=== PATIENT | male | born 1950 | race Caucasian/White ===

== ENCOUNTER 2017-05-30 15:08 | Inpatient (IN) | payer BC ==
--- OUTSIDE RECORDS SUMMARY | 2017-05-30 15:10 | XMS REPORT | Clinical Summary ---
:1950 Author Organization [facility] Address [address] [place] [address] Phone Care Team Providers Name Role Phone Unavailable Primary Care Provider Unavailable Allergies No Known Allergies Current Medications Prescription Sig. Disp. Refills Start Date End Date Status aspirin 81 MG chewable Take 81 mg by Active tabletIndications: mouth daily. prevention of cerebrovascular accident simethicone (MYLICON) Take 1 tablet 60 tablet 0 03/10/2017 Active 80 MG chewable tablet (80 mg total) by mouth 4 (four) times daily as needed for Flatulence. oxyCODONE-acetaminophe Take 1 tablet 90 tablet 0 03/10/2017 Active n (PERCOCET) 10-325 mg by mouth every per tablet 4 (four) hours as needed. Max Daily Amount: 6 tablets naloxegol (MOVANTIK) Take 1 tablet 30 tablet 0 03/10/2017 Active 25 mg Oral Tab tablet (25 mg total) by mouth daily. hydrocortisone Place rectally 30 g 0 03/10/2017 03/20/2017 (ANUSOL-HC) 2.5 % nightly for 10 rectal cream days. Active Problems Problem Noted Date Smoker 03/05/2017 Malignant ascites 03/05/2017 Carcinomatosis peritonei (HCC) 03/05/2017 Obesity 03/05/2017 Generalized abdominal pain 03/05/2017 Abdominal pain 03/05/2017 Encounters Date Type Specialty Care Team Description 03/13/2017 Telephone Cardiology Cristina Martinez RN 03/09/2017 Anesthesia Event Gastroenterology Sulma Pisano CRNA 03/09/2017 Procedure Pass Gastroenterology 03/09/2017 Surgery Gastroenterology Concepcion Carbajal COLONOSCOPY,BIOPSY MD Usama 03/05/2017 - Hospital Encounter Oncology Gadicherla, Kaitlynn Generalized 03/10/2017 MD Shonda abdominal Feli Downs MD pain;Carcinomatosis ricky De Guzman MD (HCC);Malignant Edy Leidy ascites;Smoker MD Rossana after 05/29/2016 Family History Medical History Relation Name Comments Heart disease Brother Heart disease Father Cancer Maternal Grandfather Cancer Mother Relation Name Status Comments Brother Father Maternal Grandfather Mother Social History Tobacco Use Types Packs/Day Years Used Date Current Every Day Smoker 1 25 Smokeless Tobacco: Never Used Tobacco Cessation: Ready to Quit: Yes; Counseling Given: Yes Alcohol Use Drinks/Week oz/Week Comments Yes social Sex Assigned at Date Recorded Not on file Last Filed Vital Signs Vital Sign Reading Time Taken Blood Pressure 146/83 03/10/2017 7:33 AM MACHINE OPERATOR P[employer] Pulse 95 03/10/2017 7:33 AM MACHINE OPERATOR [employer] Temperature 36.3 C (97.4 F) 03/10/2017 7:33 AM MACHINE OPERATOR [employer] Respiratory Rate 19 03/10/2017 7:33 AM MACHINE OPERATOR [employer] Oxygen Saturation 94% 03/10/2017 7:33 AM MACHINE OPERATOR [employer]ICKER Inhaled Oxygen Concentration - - Weight 124.3 kg (274 lb 1.6 oz) 03/05/2017 11:00 AM MACHINE OPERATOR [employer] Height 180.3 cm (5' 11") 03/05/2017 11:00 AM MACHINE OPERATOR [employer]ICK[employer] Body Mass Index 38.23 03/05/2017 11:00 AM MACHINE OPERATOR [employer]ICKER Plan of Treatment Health Maintenance Due Date Last Done Comments INFLUENZA VACCINE 11/23/2017 Procedures Procedure Name Priority Date/Time Associated Diagnosis Comments COLONOSCOPY,BIOPSY 03/09/2017 11:00 AM MACHINE OPERATOR [employer]ICKER abnormal imaging after 05/29/2016 Results EKG-SCANNED (03/30/2017 1:21 PM)RHYTHM STRIP - SCAN (03/13/2017 8:20 AM)POC- Glucose meter (03/10/2017 7:48 AM)Only the most recent of15 resultswithin the time period is included. Component Value Ref Range POC-Glucose Meter 138 (H)Comment: TESTED AT [address] 70 - 110 mg/[place] [address] Specimen Performing Laboratory Blood [facility] [address] [address] Comprehensive metabolic panel (03/10/2017 6:11 AM)Only the most recent of4 resultswithin the time period is included. Component Value Ref Range Protein, Total 6.2 6.0 - 8.3 gm/dL Albumin 2.7 (L) 3.5 - 5.0 g/dL Alkaline Phosphatase 45 40 - 150 U/L Total Bilirubin 0.4 0.2 - 1.2 mg/dL Sodium 136 136 - 145 meq/L Potassium 3.7 3.5 - 5.1 meq/L Chloride 100 98 - 107 meq/L CO2 27 22 - 29 meq/L BUN 11 7 - 21 mg/dL Creatinine 0.59 0.57 - 1.25 mg/dL Glucose 129 (H) 70 - 105 mg/dL Calcium 8.6 8.4 - 10.2 mg/dL AST 19 5 - 34 U/L ALT 21 6 - 55 U/L EGFR Comment: INSUFFICIENT CLINICAL DATA TO mL/min/1.73 sq m CALCULATE ESTIMATED GFR. Specimen Performing Laboratory Blood - Arm, Right [address] [address] REPORT OF PROCEDURE - ENDOSCOPY URL (03/09/2017 11:35 AM)Tissue Exam (2017 11:25 AM) Component Value Ref Range Case Report Surgical Pathology Report Case: [id number] Authorizing Provider:Concepcion Carbajal MDCollected: 03/09/2017 1125 Ordering Location: [address] Received: 03/09/2017 1341 SERVICE Pathologist: Pamela García MD Specimen:Polyp, Colon - Sigmoid, mass 35 cm ADDENDUM 2 Addendum is issued to report additional results from [employer]. The original diagnosis remains the same. Results: - NO EVIDENCE OF MUTATION IN BRAF, KRAS, NRAS AND HRAS GENES. Please see the attached scanned documents for additional information. ADDENDUM The addendum is being issued to report the results of immunohistochemistry (IHC) testing for Mismatch Repair (MMR) Proteins, which has been performed on the colon cancer at the request of the oncologist. The diagnosis remains unchanged. IHC testing for all four MMR proteins was performed on selected block A1 with appropriate controls. RESULTS MLH1: Intact nuclear expression MSH2: Intact nuclear expression MSH6: Intact nuclear expression PMS2: Intact nuclear expression IHC Interpretation No loss of nuclear expression of MMR proteins: low probability of microsatellite instability-high (MSI-H)# #There are exceptions to the above IHC interpretations. These results should not be considered in isolation, and clinical correlation with genetic counseling is recommended to assess the need for germline testing. Immunohistochemistry disclaimer: The immunohistochemistry test was developed and its performance characteristics determined by [facility], Pathology Laboratory. It has not been cleared or approved by the U.S. Food and Drug Administration. The FDA has determined that such clearance or approval is not necessary. The test is used for clinical purposes. It should not be regarded as investigational or for research. This laboratory is certified under the Clinical Laboratory Improvement Amendments of 1988 (CLIA-88) as qualified to perform high complexity clinical laboratory testing. 57[address], 66486 x3 DIAGNOSIS COLON, SIGMOID, MASS, BIOPSY: - INVASIVE ADENOCARCINOMA, WITH MUCINOUS DIFFERENTIATION AND SIGNET- RING CELL FEATURES Signing Pathologist Direct Phone Line: [phone] COMMENT Intradepartmental consultation: Dr. Jett Fried has been consulted on this case and concurs with the diagnosis. CPT Code(s) 97874 CLINICAL HISTORY Abnormal imaging SPECIMEN SOURCE COLON GROSS DESCRIPTION Sigmoid colon mass at 35 cm biopsy MICROSCOPIC DESCRIPTION Received in formalin labeled "polyp, colon sigmoid", description "mass 35 cm" are multiple fragments measuring 1.5 x 0.6 x 0.1 cm in aggregate. The specimen is entirely submitted in A1. DB/ew Specimen Performing Laboratory Tissue - Polyp, Colon - Sigmoid [address] [address] Calcium, Ionized (03/07/2017 5:21 AM)Only the most recent of2 resultswithin the time period is included. Component Value Ref Range Calcium, Ion 1.07 (L) 1.12 - 1.27 mmol/L pH, Blood 7.36 Specimen Performing Laboratory Blood [address] [address] CBC with platelet count + automated diff (03/07/2017 5:21 AM)Only the most recent of3 resultswithin the time period is included. Component Value Ref Range WBC 10.4 3.5 - 10.5 K/L RBC 4.37 (L) 4.63 - 6.08 M/L Hemoglobin 12.5 (L) 13.7 - 17.5 GM/DL Hematocrit 39.7 (L) 40.1 - 51.0 % MCV 90.8 79.0 - 92.2 fL MCH 28.6 25.7 - 32.2 pg MCHC 31.5 (L) 32.3 - 36.5 GM/DL RDW 12.3 11.6 - 14.4 % Platelets 367 150 - 450 K/CU MM MPV 10.5 9.4 - 12.4 fL nRBC 0 0 - 0 /100 WBC % Neutros 77 % % Lymphs 9 % % Monos 13 % % Eos 0 % % Baso 0 % # Neutros 8.03 (H) 1.78 - 5.38 K/L # Lymphs 0.96 (L) 1.32 - 3.57 K/L # Monos 1.33 (H) 0.30 - 0.82 K/L # Eos 0.00 (L) 0.04 - 0.54 K/L # Baso 0.03 0.01 - 0.08 K/L Immature Granulocytes-Relative 1 0 - 1 % Specimen Performing Laboratory Blood [address] [address] CBC with platelet count + automated diff (03/07/2017 5:21 AM)Only the most recent of3 resultswithin the time period is included. Specimen Performing Laboratory Blood Narrative The following orders were created for panel order CBC with platelet count + automated diff. Procedure Abnormality Status --------- ------ CBC with platelet count ...[[id number]]AbnormalFinal result Please view results for these tests on the individual orders. Phosphorus (03/07/2017 5:21 AM)Only the most recent of2 resultswithin the time period is included. Component Value Ref Range Phosphorus 3.7 2.3 - 4.7 mg/dL Specimen Performing Laboratory Blood [address] [address] Magnesium (03/07/2017 5:21 AM)Only the most recent of2 resultswithin the time period is included. Component Value Ref Range Magnesium 1.9 1.6 - 2.6 mg/dL Specimen Performing Laboratory Blood [address] [address] US abdomen limited (03/06/2017 3:44 PM) Specimen Performing Laboratory GE RIS Narrative FINAL REPORT Limited abdomen ultrasound. Clinical diagnosis malignant ascites. 12 images were submitted for interpretation. Specifically there is no evidence of a serous fluid collection amenable to percutaneous aspiration. The requested paracentesis was canceled. Signed: Poppy Bender MD Report Verified Date/Time:03/06/2017 16:18:39 Reading Location: [place] [id number] Ultrasound Reading Room Procedure Note Interface, External Ris In - 03/06/2017 4:20 PM MACHINE OPERATOR PICKER FINAL REPORT Limited abdomen ultrasound. Clinical diagnosis malignant ascites. 12 images were submitted for interpretation. Specifically there is no evidence of a serous fluid collection amenable to percutaneous aspiration. The requested paracentesis was canceled. Signed: Poppy Bender MD Report Verified Date/Time: 03/06/2017 16:18:39 Reading Location: [place] [id number] Ultrasound Reading Room abdomen/pelvis with IV contrast (03/06/2017 3:12 PM) Specimen Performing Laboratory GE RIS Narrative FINAL REPORT HISTORY : peritoneal carcinomatosis Technique: Multiple axial images of the abdomen and pelvis were performed with the administration of IV and oral contrast from the lung bases to the pubic symphysis. Delayed images were also obtained. This exam was performed according to our departmental dose optimization program which includes automated exposure control, adjustment of the mA and/or kV according to patient size and/or use of iterative reconstructive technique. COMPARISON : None COMMENT : There is some bibasilar linear subsegmental atelectasis versus scarring, seen most significantly in the right lung base. There is atherosclerotic vascular disease. The visualized spleen, adrenal glands, kidneys, pancreas, stomach and duodenum are within normal limits. There is scalloping of the hepatic contour in the vicinity of the perihepatic ascites. This is concerning for malignancy ascites given the ancillary findings in the abdomen and pelvis. Superinfection of the fluid cannot be entirely excluded in the appropriate clinical context. There is no abdominal, retroperitoneal or pelvic lymphadenopathy. Multilevel degenerative disc changes of the thoracolumbar spine are seen. There is grade 1-2 anterolisthesis of L4 over L5. No free air is identified in the abdomen or pelvis. There is a small amount of free fluid/ascites in the abdomen and pelvis. There is omental caking/nodularity with numerous peritoneal based nodules. For example, in the left upper quadrant, there is a 1.6 cm pleural-based nodule. More confluent areas are seen in the right upper abdomen. The largest area of omental disease is seen in the left mid abdomen measuring up to a maximum of 14.0 x 3.0 cm. No findings of any bowel obstruction. The small bowel is within normal limits. There is focal masslike thickening identified of the mid sigmoid colon. A colonic neoplasm cannot be excluded. Correlation with colonoscopy is advised. An area of focal colitis cannot be excluded. There is colonic diverticulosis. There are no CT findings to suggest diverticulitis, however. The appendix is visualized and is within normal limits. The prostate gland is enlarged. The seminal vesicles are grossly within normal limits. There is some high density material in the bladder on the nondelayed images. This could represent some excreted contrast from prior contrast enhanced examination. Other etiologies including hemorrhagic fluid or proteinaceous fluid cannot be entirely excluded. Impression: 1. Focal masslike thickening of the mid sigmoid colon. Neoplasm cannot be excluded. Correlation with colonoscopy is advised. 2. Extensive peritoneal and omental carcinomatosis. 3. Small amount of likely malignant ascites. 4. Enlarged prostate gland. Signed: Teresita Landeros MD Report Verified Date/Time:03/06/2017 15:39:38 Reading Location: [facility] Diagnostic Imaging Reading Room - [place] [address] Procedure Note Interface, External Ris In - 03/06/2017 3:41 PM MACHINE OPERATOR PICKER FINAL REPORT HISTORY : peritoneal carcinomatosis Technique: Multiple axial images of the abdomen and pelvis were performed with the administration of IV and oral contrast from the lung bases to the pubic symphysis. Delayed images were also obtained. This exam was performed according to our departmental dose optimization program which includes automated exposure control, adjustment of the mA and/or kV according to patient size and/or use of iterative reconstructive technique. COMPARISON : None COMMENT : There is some bibasilar linear subsegmental atelectasis versus scarring, seen most significantly in the right lung base. There is atherosclerotic vascular disease. The visualized spleen, adrenal glands, kidneys, pancreas, stomach and duodenum are within normal limits. There is scalloping of the hepatic contour in the vicinity of the perihepatic ascites. This is concerning for malignancy ascites given the ancillary findings in the abdomen and pelvis. Superinfection of the fluid cannot be entirely excluded in the appropriate clinical context. There is no abdominal, retroperitoneal or pelvic lymphadenopathy. Multilevel degenerative disc changes of the thoracolumbar spine are seen. There is grade 1-2 anterolisthesis of L4 over L5. No free air is identified in the abdomen or pelvis. There is a small amount of free fluid/ascites in the abdomen and pelvis. There is omental caking/nodularity with numerous peritoneal based nodules. For example, in the left upper quadrant, there is a 1.6 cm pleural-based nodule. More confluent areas are seen in the right upper abdomen. The largest area of omental disease is seen in the left mid abdomen measuring up to a maximum of 14.0 x 3.0 cm. No findings of any bowel obstruction. The small bowel is within normal limits. There is focal masslike thickening identified of the mid sigmoid colon. A colonic neoplasm cannot be excluded. Correlation with colonoscopy is advised. An area of focal colitis cannot be excluded. There is colonic diverticulosis. There are no CT findings to suggest diverticulitis, however. The appendix is visualized and is within normal limits. The prostate gland is enlarged. The seminal vesicles are grossly within normal limits. There is some high density material in the bladder on the nondelayed images. This could represent some excreted contrast from prior contrast enhanced examination. Other etiologies including hemorrhagic fluid or proteinaceous fluid cannot be entirely excluded. Impression: 1. Focal masslike thickening of the mid sigmoid colon. Neoplasm cannot be excluded. Correlation with colonoscopy is advised. 2. Extensive peritoneal and omental carcinomatosis. 3. Small amount of likely malignant ascites. 4. Enlarged prostate gland. Signed: Teresita Landeros MD Report Verified Date/Time: 03/06/2017 15:39:38 Reading Location: [facility] Diagnostic Imaging Reading Room - [place] [address] Prothrombin time/INR (03/06/2017 10:16 AM)Only the most recent of2 resultswithin the time period is included. Component Value Ref Range Protime 15.7 (H) 11.7 - 14.7 seconds INR 1.2 <=5.9 Specimen Performing Laboratory Blood - Arm, [address] [address] Narrative RECOMMENDED COUMADIN/WARFARIN INR THERAPY RANGES STANDARD DOSE: 2.0 - 3.0 Includes: PROPHYLAXIS for venous thrombosis, systemic embolization; TREATMENT for venous thrombosis and/or pulmonary embolus. HIGH RISK: Target INR is 2.5-3.5 for patients with mechanical heart valves. TSH/Free T4 If Indicated (03/06/2017 5:01 AM) Component Value Ref Range TSH 0.82 0.35 - 4.94 uIU/mL Specimen Performing Laboratory Blood - Arm, [address] [address] Hemoglobin A1c (03/06/2017 5:01 AM) Component Value Ref Range Hemoglobin A1C 7.9 (H) 4.3 - 6.1 % Specimen Performing Laboratory Blood - Arm, [address] [address] Basic Metabolic Panel (03/06/2017 5:01 AM) Component Value Ref Range Sodium 135 (L) 136 - 145 meq/L Potassium 4.2 3.5 - 5.1 meq/L Chloride 99 98 - 107 meq/L CO2 27 22 - 29 meq/L BUN 12 7 - 21 mg/dL Creatinine 0.62 0.57 - 1.25 mg/dL Glucose 143 (H) 70 - 105 mg/dL Calcium 8.7 8.4 - 10.2 mg/dL EGFR Comment: INSUFFICIENT CLINICAL DATA TO CALCULATE mL/min/1.73 sq m ESTIMATED GFR. Specimen Performing Laboratory Blood - Arm, [address] [address] after 05/29/2016
--- OUTSIDE RECORDS SUMMARY | 2017-05-30 15:11 | XMS REPORT ---
:1950 [facility] [address] [place] [address] Care Team Providers Name Role Phone ABDOUL HARRIS Unavailable Unavailable Problems This patient has no known problems. Allergies, Adverse Reactions, Alerts This patient has no known allergies or adverse reactions. Medications This patient has no known medications. Results Test Description Test Time Test Comments Text Results Atomic Results Result Comments TISSUE EXAM 2017-04-06 10:48:00 Surgical Pathology Report Case: [id number] Authorizing Provider: Concepcion Carbajal MD Collected: 03/09/2017 1125 Ordering Location: [address] Received: 03/09/2017 1341 SERVICE Pathologist: Pamela García MD Specimen: Polyp, Colon - Sigmoid, mass 35 cm Addendum is issued to report additional results from [employer]. The original diagnosis remains the same.Results:- NO EVIDENCE OF MUTATION IN BRAF, KRAS, NRAS AND HRAS GENES.Please see the attached scanned documents for additional information.Addendum electronically signed by Pamela García MD on 04/06/2017 at 10:48 AMThe addendum is being issued to report the results of immunohistochemistry (IHC) testing for Mismatch Repair (MMR) Proteins, which has been performed on the colon cancer at the request of the oncologist.The diagnosis remains unchanged.IHC testing for all four MMR proteins was performed on selected block A1 with appropriate controls.RESULTSMLH1: Intact nuclear expressionMSH2: Intact nuclear expressionMSH6: Intact nuclear expressionPMS2: Intact nuclear expressionIHC InterpretationNo loss of nuclear expression of MMR proteins: low probability of microsatellite instability-high (MSI-H)# #There are exceptions to the above IHC interpretations. These results should not be considered in isolation, and clinical correlation with genetic counseling is recommended to assess the need for germline testing.Immunohistochemistry disclaimer:The immunohistochemistry test was developed and its performance characteristics determined by [facility], Pathology Laboratory. It has not been cleared [...] qualified to perform high complexity clinical laboratory testing.[id number], [id number] [id number] electronically signed by Pamela García MD on 03/25/2017 at 10:22 AMCOLON, SIGMOID, MASS, BIOPSY: - INVASIVE ADENOCARCINOMA, WITH MUCINOUS DIFFERENTIATION AND SIGNET-RING CELL FEATURES Signing Pathologist Direct Phone Line: [phone] signed by Pamela García MD on 03/10/2017 at 1:46 PMIntradepartmental consultation: Dr. Jett Fried has been consulted on this case and concurs with the diagnosis.[id number] imagingCOLONSigmoid colon mass at 35 cm biopsy Received in formalin labeled "polyp, colon sigmoid", description "mass 35 cm" are multiple fragments measuring 1.5 x 0.6 x 0.1 cm in aggregate. The specimen is entirely submitted in A1. DB/ew POCT-GLUCOSE METER 2017-03-10 08:31:00 Test Item Value Reference Range Comments POC-GLUCOSE METER (BEAKER) (test 138 mg/dL 70-110 TESTED AT [facility] [address] [facility] [address] kcmy=[id number]) [facility] [address] COMPREHENSIVE METABOLIC [id number] 07:34:00 Test Item Value Reference Range Comments TOTAL PROTEIN (BEAKER) 6.2 gm/dL 6.0-8.3 (test ltwk=258) ALBUMIN (BEAKER) (test 2.7 g/dL 3.5-5.0 jnbf=3411) ALKALINE PHOSPHATASE 45 U/L 40-150 (BEAKER) (test inaf=193) BILIRUBIN TOTAL (BEAKER) 0.4 mg/dL 0.2-1.2 (test vyja=571) SODIUM (BEAKER) (test 136 meq/L 136-145 kuyh=259) POTASSIUM (BEAKER) (test 3.7 meq/L 3.5-5.1 guwp=643) CHLORIDE (BEAKER) (test 100 meq/L 98-107 jkyg=234) CO2 (BEAKER) (test 27 meq/L 22-29 xqjl=912) BLOOD UREA NITROGEN 11 mg/dL 7-21 (BEAKER) (test rcxx=320) CREATININE (BEAKER) (test 0.59 mg/dL 0.57-1.25 bsbc=013) GLUCOSE RANDOM (BEAKER) 129 mg/dL 70-105 (test rjst=404) CALCIUM (BEAKER) (test 8.6 mg/dL 8.4-10.2 llke=674) AST (SGOT) (BEAKER) (test 19 U/L 5-34 iqcf=280) ALT (SGPT) (BEAKER) (test 21 U/L 6-55 kkfk=254) EGFR (BEAKER) (test mL/min/1.73 sq m INSUFFICIENT CLINICAL DATA pdjx=1850) TO CALCULATE ESTIMATED GFR. POCT-GLUCOSE [id number] 21:05:00 Test Item Value Reference Range Comments POC-GLUCOSE METER (BEAKER) 140 mg/dL 70-110 TESTED AT [address] (test pqke=5116) [place] [id number] POCT-GLUCOSE [id number] 18:31:00 Test Item Value Reference Range Comments POC-GLUCOSE METER (BEAKER) 170 mg/dL 70-110 TESTED AT [address] (test cjlh=3945) [place] [address] POCT-GLUCOSE [id number] 11:56:00 Test Item Value Reference Range Comments POC-GLUCOSE METER (BEAKER) 130 mg/dL 70-110 TESTED AT [address] (test tszx=1563) [place] [id number] POCT-GLUCOSE [id number] 08:55:00 Test Item Value Reference Range Comments POC-GLUCOSE METER (BEAKER) 129 mg/dL 70-110 TESTED AT [address] (test xivi=3133) [place] [id number] POCT-GLUCOSE [id number] 20:33:00 Test Item Value Reference Range Comments POC-GLUCOSE METER (BEAKER) 166 mg/dL 70-110 TESTED AT [address] (test pqvu=9690) [place] [address] POCT-GLUCOSE [id number] 16:58:00 Test Item Value Reference Range Comments POC-GLUCOSE METER (BEAKER) 133 mg/dL 70-110 TESTED AT [address] (test dshg=4133) [facility] [address] POCT-GLUCOSE [id number] 12:33:00 Test Item Value Reference Range Comments POC-GLUCOSE METER (BEAKER) 151 mg/dL 70-110 TESTED AT [address] (test hsop=8637) [facility] [address] COMPREHENSIVE METABOLIC [id number] 07:46:00 Test Item Value Reference Range Comments TOTAL PROTEIN (BEAKER) 6.5 gm/dL 6.0-8.3 (test uhhu=562) ALBUMIN (BEAKER) (test 2.9 g/dL 3.5-5.0 npsg=1461) ALKALINE PHOSPHATASE 51 U/L 40-150 (BEAKER) (test puad=584) BILIRUBIN TOTAL (BEAKER) 0.4 mg/dL 0.2-1.2 (test qvqq=042) SODIUM (BEAKER) (test 136 meq/L 136-145 qrar=281) POTASSIUM (BEAKER) (test 4.1 meq/L 3.5-5.1 drww=998) CHLORIDE (BEAKER) (test 100 meq/L 98-107 nehr=742) CO2 (BEAKER) (test 26 meq/L 22-29 vsqm=165) BLOOD UREA NITROGEN 13 mg/dL 7-21 (BEAKER) (test hutr=704) CREATININE (BEAKER) (test 0.58 mg/dL 0.57-1.25 gsxv=090) GLUCOSE RANDOM (BEAKER) 132 mg/dL 70-105 (test sbyk=805) CALCIUM (BEAKER) (test 8.9 mg/dL 8.4-10.2 jzsu=794) AST (SGOT) (BEAKER) (test 15 U/L 5-34 tjcf=334) ALT (SGPT) (BEAKER) (test 26 U/L 6-55 ujkj=049) EGFR (BEAKER) (test mL/min/1.73 sq m INSUFFICIENT CLINICAL DATA ueea=8081) TO CALCULATE ESTIMATED GFR. POCT-GLUCOSE [id number] 07:33:00 Test Item Value Reference Range Comments POC-GLUCOSE METER (BEAKER) 139 mg/dL 70-110 TESTED AT [address] (test aubs=3866) [facility] [address] POCT-GLUCOSE [id number] 22:21:00 Test Item Value Reference Range Comments POC-GLUCOSE METER (BEAKER) 170 mg/dL 70-110 TESTED AT [address] (test mwjy=1248) [facility] [address] POCT-GLUCOSE [id number] 21:17:00 Test Item Value Reference Range Comments POC-GLUCOSE METER (BEAKER) 146 mg/dL 70-110 TESTED AT [address] (test mrio=4560) [facility] [address] POCT-GLUCOSE [id number] 12:23:00 Test Item Value Reference Range Comments POC-GLUCOSE METER (BEAKER) 189 mg/dL 70-110 TESTED AT [address] (test ybqx=8788) [facility] [address] CBC W/PLT COUNT & AUTO [id number] 08:47:00 Test Item Value Reference Range Comments WHITE BLOOD CELL COUNT (BEAKER) (test cwji=960) 10.4 K/ L 3.5-10.5 RED BLOOD CELL COUNT (BEAKER) (test fvxs=727) 4.37 M/ L 4.63-6.08 HEMOGLOBIN (BEAKER) (test fwwm=922) 12.5 GM/DL 13.7-17.5 HEMATOCRIT (BEAKER) (test ruwq=683) 39.7 % 40.1-51.0 MEAN CORPUSCULAR VOLUME (BEAKER) (test bwnm=119) 90.8 fL 79.0-92.2 MEAN CORPUSCULAR HEMOGLOBIN (BEAKER) (test 28.6 pg 25.7-32.2 jadp=555) MEAN CORPUSCULAR HEMOGLOBIN CONC (BEAKER) (test 31.5 GM/DL 32.3-36.5 tmpc=425) RED CELL DISTRIBUTION WIDTH (BEAKER) (test 12.3 % 11.6-14.4 otrs=713) PLATELET COUNT (BEAKER) (test rphi=769) 367 K/CU MM 150-450 MEAN PLATELET VOLUME (BEAKER) (test zemw=210) 10.5 fL 9.4-12.4 NUCLEATED RED BLOOD CELLS (BEAKER) (test 0 /100 WBC 0-0 ayrw=820) NEUTROPHILS RELATIVE PERCENT (BEAKER) (test 77 % gojn=607) LYMPHOCYTES RELATIVE PERCENT (BEAKER) (test 9 % eypv=332) MONOCYTES RELATIVE PERCENT (BEAKER) (test 13 % gufl=386) EOSINOPHILS RELATIVE PERCENT (BEAKER) (test 0 % ekee=652) BASOPHILS RELATIVE PERCENT (BEAKER) (test 0 % baiv=002) NEUTROPHILS ABSOLUTE COUNT (BEAKER) (test 8.03 K/ L 1.78-5.38 ezcv=926) LYMPHOCYTES ABSOLUTE COUNT (BEAKER) (test 0.96 K/ L 1.32-3.57 igea=283) MONOCYTES ABSOLUTE COUNT (BEAKER) (test 1.33 K/ L 0.30-0.82 lfin=736) EOSINOPHILS ABSOLUTE COUNT (BEAKER) (test 0.00 K/ L 0.04-0.54 igqr=573) BASOPHILS ABSOLUTE COUNT (BEAKER) (test 0.03 K/ L 0.01-0.08 ndoe=557) IMMATURE GRANULOCYTES-RELATIVE PERCENT (BEAKER) 1 % 0-1 (test oieu=8582) POCT-GLUCOSE [id number] 08:41:00 Test Item Value Reference Range Comments POC-GLUCOSE METER (BEAKER) 150 mg/dL 70-110 TESTED AT [facility] [address] [facility] (test gmcs=7950) [facility] [address] COMPREHENSIVE METABOLIC [id number] 07:27:00 Test Item Value Reference Range Comments TOTAL PROTEIN (BEAKER) 6.4 gm/dL 6.0-8.3 (test eplg=059) ALBUMIN (BEAKER) (test 2.9 g/dL 3.5-5.0 nmzv=1427) ALKALINE PHOSPHATASE 52 U/L 40-150 (BEAKER) (test dzbp=188) BILIRUBIN TOTAL (BEAKER) 0.4 mg/dL 0.2-1.2 (test wxsa=054) SODIUM (BEAKER) (test 133 meq/L 136-145 uvaw=756) POTASSIUM (BEAKER) (test 4.5 meq/L 3.5-5.1 layv=882) CHLORIDE (BEAKER) (test 98 meq/L 98-107 ynkw=467) CO2 (BEAKER) (test 25 meq/L 22-29 btuj=547) BLOOD UREA NITROGEN 12 mg/dL 7-21 (BEAKER) (test hiqn=261) CREATININE (BEAKER) (test 0.60 mg/dL 0.57-1.25 vshg=150) GLUCOSE RANDOM (BEAKER) 139 mg/dL 70-105 (test oyzm=998) CALCIUM (BEAKER) (test 8.9 mg/dL 8.4-10.2 epdq=883) AST (SGOT) (BEAKER) (test 21 U/L 5-34 ekgy=294) ALT (SGPT) (BEAKER) (test 35 U/L 6-55 xyua=721) EGFR (BEAKER) (test mL/min/1.73 sq m INSUFFICIENT CLINICAL DATA oohg=2912) TO CALCULATE ESTIMATED GFR. [id number] 07:26:00 Test Item Value Reference Range Comments PHOSPHORUS (BEAKER) (test xqnu=030) 3.7 mg/dL 2.3-4.7 [id number] 07:26:00 Test Item Value Reference Range Comments MAGNESIUM (BEAKER) (test ccda=052) 1.9 mg/dL 1.6-2.6 CALCIUM, [id number] 07:15:00 Test Item Value Reference Range Comments CALCIUM IONIZED (BEAKER) (test hvay=804) 1.07 mmol/L 1.12-1.27 PH, BLOOD (BEAKER) (test aukn=8340) 7.36 POCT-GLUCOSE [id number] 21:41:00 Test Item Value Reference Range Comments POC-GLUCOSE METER (BEAKER) 137 mg/dL 70-110 TESTED AT [facility] [address] [facility] (test xavf=4869) [facility] [address] POCT-GLUCOSE [id number] 18:26:00 Test Item Value Reference Range Comments POC-GLUCOSE METER (BEAKER) 132 mg/dL 70-110 TESTED AT [place] [id number] [facility] (test nrqa=0952) [facility] [address] U/S, ABDOMINAL, [id number] 16:18:00Reason for exam:->malignant ascitesFINAL REPORT Limited abdomen ultrasound.Clinical diagnosis malignant ascites.12 images were submitted for interpretation.Specifically there is no evidence of a serous fluid collection amenable to percutaneous aspiration. The requested paracentesis was canceled. Signed: Sindy Bendereport Verified Date/Time: 03/06/2017 16:18:39 Reading Location: [facility] P006J Ultrasound Reading Room CT, [id number] 15:39:00FINAL REPORT HISTORY : peritoneal carcinomatosis Technique: Multiple [...] degenerative disc changes of the thoracolumbar spine areseen. There is grade 1- 2 anterolisthesis of L4 over L5. No free air is identified in the abdomen or pelvis. There is a small amount of free fluid/ascites in the abdomen and pelvis. There is omental caking/nodularity with numerous peritoneal based nodules. For example, in the left upper quadrant, thereis a 1.6 cm pleural- based nodule. More confluent areas are seen in [...] carcinomatosis. 3. Small amount of likely malignant ascites.4. Enlarged prostate gland. Signed: Teresita Hammond MDReport Verified Date/Time: 03/06/2017 15:39:38 Reading Location : [facility] Diagnostic Imaging Reading Room - [place] [address] PROTHROMBIN [id number] 10:41:00 Test Item Value Reference Range Comments PROTIME (BEAKER) (test nccy=555) 15.7 seconds 11.7-14.7 INR (BEAKER) (test vqfa=835) 1.2 <=5.9 RECOMMENDED COUMADIN/WARFARIN INR THERAPY RANGESSTANDARD DOSE: 2.0 - 3.0 Includes: PROPHYLAXIS forvenous thrombosis, systemic embolization; TREATMENT for venous thrombosis and/or pulmonary embolus.HIGH RISK: Target INR is 2.5-3.5 for patients with mechanical heart valves.CBC W/PLT COUNT & AUTO [id number] 08:11:00 Test Item Value Reference Range Comments WHITE BLOOD CELL COUNT (BEAKER) (test wief=894) 10.9 K/ L 3.5-10.5 RED BLOOD CELL COUNT (BEAKER) (test amqa=921) 4.32 M/ L 4.63-6.08 HEMOGLOBIN (BEAKER) (test pmpx=322) 12.4 GM/DL 13.7-17.5 HEMATOCRIT (BEAKER) (test aegp=725) 39.0 % 40.1-51.0 MEAN CORPUSCULAR VOLUME (BEAKER) (test pvoe=047) 90.3 fL 79.0-92.2 MEAN CORPUSCULAR HEMOGLOBIN (BEAKER) (test 28.7 pg 25.7-32.2 nypl=829) MEAN CORPUSCULAR HEMOGLOBIN CONC (BEAKER) (test 31.8 GM/DL 32.3-36.5 bocs=449) RED CELL DISTRIBUTION WIDTH (BEAKER) (test 12.4 % 11.6-14.4 fsga=241) PLATELET COUNT (BEAKER) (test fxuw=560) 394 K/CU MM 150-450 MEAN PLATELET VOLUME (BEAKER) (test bmyy=762) 10.2 fL 9.4-12.4 NUCLEATED RED BLOOD CELLS (BEAKER) (test 0 /100 WBC 0-0 raoe=738) NEUTROPHILS RELATIVE PERCENT (BEAKER) (test 75 % uqjv=394) LYMPHOCYTES RELATIVE PERCENT (BEAKER) (test 11 % qyuo=824) MONOCYTES RELATIVE PERCENT (BEAKER) (test 13 % agih=363) EOSINOPHILS RELATIVE PERCENT (BEAKER) (test 0 % nhac=445) BASOPHILS RELATIVE PERCENT (BEAKER) (test 0 % znsi=132) NEUTROPHILS ABSOLUTE COUNT (BEAKER) (test 8.14 K/ L 1.78-5.38 kffv=983) LYMPHOCYTES ABSOLUTE COUNT (BEAKER) (test 1.20 K/ L 1.32-3.57 odmn=929) MONOCYTES ABSOLUTE COUNT (BEAKER) (test 1.43 K/ L 0.30-0.82 lsij=687) EOSINOPHILS ABSOLUTE COUNT (BEAKER) (test 0.00 K/ L 0.04-0.54 cxmo=434) BASOPHILS ABSOLUTE COUNT (BEAKER) (test 0.04 K/ L 0.01-0.08 hprn=919) IMMATURE GRANULOCYTES-RELATIVE PERCENT (BEAKER) 1 % 0-1 (test ynzc=6683) HEMOGLOBIN [id number] 07:50:00 Test Item Value Reference Range Comments HEMOGLOBIN A1C (BEAKER) (test ezcm=531) 7.9 % 4.3-6.1 TSH/FREE T4 IF [id number] 07:24:00 Test Item Value Reference Range Comments THYROID STIMULATING HORMONE (BEAKER) (test 0.82 uIU/mL 0.35-4.94 ekib=206) BASIC METABOLIC [id number] 07:19:00 Test Item Value Reference Range Comments SODIUM (BEAKER) (test 135 meq/L 136-145 ason=053) POTASSIUM (BEAKER) (test 4.2 meq/L 3.5-5.1 rplh=096) CHLORIDE (BEAKER) (test 99 meq/L 98-107 csbb=839) CO2 (BEAKER) (test 27 meq/L 22-29 uoza=698) BLOOD UREA NITROGEN 12 mg/dL 7-21 (BEAKER) (test xtui=043) CREATININE (BEAKER) (test 0.62 mg/dL 0.57-1.25 ckvt=383) GLUCOSE RANDOM (BEAKER) 143 mg/dL 70-105 (test xheg=327) CALCIUM (BEAKER) (test 8.7 mg/dL 8.4-10.2 wrba=592) EGFR (BEAKER) (test mL/min/1.73 sq m INSUFFICIENT CLINICAL DATA qzpj=0898) TO CALCULATE ESTIMATED GFR. [id number] 07:18:00 Test Item Value Reference Range Comments PHOSPHORUS (BEAKER) (test ezej=934) 3.4 mg/dL 2.3-4.7 [id number] 07:18:00 Test Item Value Reference Range Comments MAGNESIUM (BEAKER) (test cued=588) 2.0 mg/dL 1.6-2.6 CALCIUM, [id number] 07:13:00 Test Item Value Reference Range Comments CALCIUM IONIZED (BEAKER) (test vawk=849) 0.91 mmol/L 1.12-1.27 PH, BLOOD (BEAKER) (test aklo=2867) 7.45 COMPREHENSIVE METABOLIC [id number] 17:49:00 Test Item Value Reference Range Comments TOTAL PROTEIN (BEAKER) 7.0 gm/dL 6.0-8.3 (test iifi=415) ALBUMIN (BEAKER) (test 3.2 g/dL 3.5-5.0 cpwm=2162) ALKALINE PHOSPHATASE 58 U/L 40-150 (BEAKER) (test bwib=992) BILIRUBIN TOTAL (BEAKER) 0.4 mg/dL 0.2-1.2 (test aiik=916) SODIUM (BEAKER) (test 137 meq/L 136-145 ttpr=182) POTASSIUM (BEAKER) (test 4.5 meq/L 3.5-5.1 dzeq=966) CHLORIDE (BEAKER) (test 101 meq/L 98-107 wuxs=490) CO2 (BEAKER) (test 26 meq/L 22-29 awyg=205) BLOOD UREA NITROGEN 12 mg/dL 7-21 (BEAKER) (test mnml=617) CREATININE (BEAKER) (test 0.67 mg/dL 0.57-1.25 xcho=588) GLUCOSE RANDOM (BEAKER) 135 mg/dL 70-105 (test lltv=132) CALCIUM (BEAKER) (test 9.1 mg/dL 8.4-10.2 hyqc=563) AST (SGOT) (BEAKER) (test 30 U/L 5-34 ywiu=066) ALT (SGPT) (BEAKER) (test 50 U/L 6-55 otvx=343) EGFR (BEAKER) (test mL/min/1.73 sq m INSUFFICIENT CLINICAL DATA azut=4186) TO CALCULATE ESTIMATED GFR. PROTHROMBIN [id number] 17:24:00 Test Item Value Reference Range Comments PROTIME (BEAKER) (test autw=383) 38.8 seconds 11.7-14.7 INR (BEAKER) (test qsfl=415) 3.9 <=5.9 RECOMMENDED COUMADIN/WARFARIN INR THERAPY RANGESSTANDARD DOSE: 2.0 - 3.0 Includes: PROPHYLAXIS forvenous thrombosis, systemic embolization; TREATMENT for venous thrombosis and/or pulmonary embolus.HIGH RISK: Target INR is 2.5-3.5 for patients with mechanical heart valves.CBC W/PLT COUNT & AUTO [id number] 17:16:00 Test Item Value Reference Range Comments WHITE BLOOD CELL COUNT (BEAKER) (test ssef=197) 12.3 K/ L 3.5-10.5 RED BLOOD CELL COUNT (BEAKER) (test jljk=061) 4.64 M/ L 4.63-6.08 HEMOGLOBIN (BEAKER) (test gcvb=587) 13.2 GM/DL 13.7-17.5 HEMATOCRIT (BEAKER) (test vgug=369) 42.1 % 40.1-51.0 MEAN CORPUSCULAR VOLUME (BEAKER) (test haki=726) 90.7 fL 79.0-92.2 MEAN CORPUSCULAR HEMOGLOBIN (BEAKER) (test 28.4 pg 25.7-32.2 fnae=746) MEAN CORPUSCULAR HEMOGLOBIN CONC (BEAKER) (test 31.4 GM/DL 32.3-36.5 lzqk=571) RED CELL DISTRIBUTION WIDTH (BEAKER) (test 12.4 % 11.6-14.4 epuc=610) PLATELET COUNT (BEAKER) (test hclf=674) 413 K/CU MM 150-450 MEAN PLATELET VOLUME (BEAKER) (test axfn=187) 10.3 fL 9.4-12.4 NUCLEATED RED BLOOD CELLS (BEAKER) (test 0 /100 WBC 0-0 recn=918) NEUTROPHILS RELATIVE PERCENT (BEAKER) (test 76 % pztb=809) LYMPHOCYTES RELATIVE PERCENT (BEAKER) (test 12 % yvxz=965) MONOCYTES RELATIVE PERCENT (BEAKER) (test 11 % inqr=464) EOSINOPHILS RELATIVE PERCENT (BEAKER) (test 0 % qydv=908) BASOPHILS RELATIVE PERCENT (BEAKER) (test 1 % wviy=795) NEUTROPHILS ABSOLUTE COUNT (BEAKER) (test 9.29 K/ L 1.78-5.38 uqfe=125) LYMPHOCYTES ABSOLUTE COUNT (BEAKER) (test 1.50 K/ L 1.32-3.57 qwrh=954) MONOCYTES ABSOLUTE COUNT (BEAKER) (test 1.37 K/ L 0.30-0.82 egjw=710) EOSINOPHILS ABSOLUTE COUNT (BEAKER) (test 0.00 K/ L 0.04-0.54 qmqh=629) BASOPHILS ABSOLUTE COUNT (BEAKER) (test 0.07 K/ L 0.01-0.08 wwsx=993) IMMATURE GRANULOCYTES-RELATIVE PERCENT (BEAKER) 1 % 0-1 (test vkzq=9012)
[2017-05-30] MEDS ORDERED: NA CHLORIDE 0.9% 1,000 ML ONE ×2 (15:53→18:11)
[2017-05-30 16:30] LABS: Protime INR 1.46
[2017-05-30 16:32] LABS: Absolute Lymphocytes (CBC) 0.8 K/uL (0.7-4.9); Absolute Neutrophil 0.6 K/uL (1.8-8.0); Basophils % 1.1 % (0-1.3); Eosinophils % 0.3 % (0-4.4); Hematocrit 45.4 % (39.6-49.0); Lymphocytes % 32.6 % (15.3-44.8); MCH 27.2 pg (27.0-35.0); MCV 86.1 fL (80-100); MPV 8.2 fL (7.6-11.3); Monocytes % 40.5 % (3.3-12.3); RBC Red Blood Cell Count 5.28 M/uL (4.33-5.43)
[2017-05-30 16:40] LABS: Bicarbonate 25 mEq/L (21-31); Glucose Level 138 mg/dL (65-120); Potassium 3.3 mEq/L (3.6-5.0); Sodium Level 129 mEq/L (135-145)
[2017-05-30 16:46] LABS: ALT/SGPT 13 IU/L (10-60); AST/SGOT 27 IU/L (10-42); Albumin 2.7 g/dL (3.2-5.5); Alkaline Phosphatase 244 IU/L (42-121); BUN Blood Urea Nitrogen 11 mg/dL (6-20); Bilirubin Direct 0.4 mg/dL (0-0.2); Bilirubin Total 1.1 mg/dL (0.3-1.2); Creatine Phosphokinase 17 IU/L (22-269); Glomerular Filtration Rate > 90 mL/min (=/>90); Protein, Total 7.5 g/dL (6.0-8.3)
[2017-05-30 16:53] LABS: Lipase < 10 U/L (22-51)
[2017-05-30] MEDS ORDERED: NA CHLORIDE 0.9% 500 ML ONE (17:36)
--- NOTE | 2017-05-30 17:49 | RAD REPORT ---
EXAM DESCRIPTION: RAD - Chest Single View - 05/30/2017 4:26 pm CLINICAL HISTORY: History of colon carcinoma, chest pain. COMPARISON: 03/05/2017 FINDINGS: Portable technique limits examination quality. Elevated right hemidiaphragmatic leaflet noted with subsegmental atelectasis in right lung base. Righ t-sided venous catheter tip in SVC. No focal infiltrate seen. The heart is normal in size. No displac ed fractures. IMPRESSION: Underinflated lungs, otherwise negative study.
[2017-05-30] MEDS ORDERED: KCL 20 MEQ/100 mL IVPB 20 MEQ/100 ML BAG IV ONE (17:51)
--- NOTE | 2017-05-30 18:24 | EDPHYS ---
Physician Documentation [facility] Name: Robert Natarajan Age: 66 yrs Sex: Male : 1950 Arrival Date: 05/30/2017 Time: 15:22 Bed 27 Private MD: ED Physician Garret Bergman HPI: 05/30 16:18 This 66 yrs old Male presents to ER via EMS with complaints of Altered Mental rn Status. 17:35 The patient presents with confusion. Onset: The symptoms/episode began/occurred today. rn Possible causes: unknown. The patient has experienced similar episodes in the past. Family reports confused, asking about their dogs, slow to respond, not wanting to eat due to decreased appetite, no fever, no vomiting/diarrhea, reports same chronic abd pain, no cough, last chemo 2 weeks ago, has metastatic colon cancer. . Historical: - Allergies: 15:27 LANOLIN; lk1 - PMHx: 15:27 colon cancer; Hypertension; lk1 - PSHx: 15:27 left shoulder sx.; left arm hardware; Tonsillectomy; lk1 - Immunization history:: Adult Immunizations up to date. - Social history:: Smoking status: Patient/guardian denies using tobacco. - Family history:: not pertinent. - Hospitalizations: : No recent hospitalization is reported. ROS: 17:35 Constitutional: Negative for fever, chills, and weight loss, Eyes: Negative for injury, rn pain, redness, and discharge, Neck: Negative for injury, pain, and swelling, Cardiovascular: Negative for chest pain, palpitations, and edema, Respiratory: Negative for shortness of breath, cough, wheezing, and pleuritic chest pain, Abdomen/GI: Negative for nausea, vomiting, diarrhea, and constipation, MS/Extremity: Negative for injury and deformity, Skin: Negative for injury, rash, and discoloration, Neuro: Negative for headache,numbness, tingling, and seizure. Exam: 17:35 Constitutional: This is a well developed, well nourished patient who is awake, alert, rn and in no acute distress. Head/Face: Normocephalic, atraumatic. Eyes: Pupils equal round and reactive to light, extra-ocular motions intact. Lids and lashes normal. Conjunctiva and sclera are non-icteric and not injected. Cornea within normal limits. Periorbital areas with no swelling, redness, or edema. ENT: dry MM Neck: Trachea midline, no thyromegaly or masses palpated, and no cervical lymphadenopathy. Supple, full range of motion without nuchal rigidity, or vertebral point tenderness. No Meningismus. Cardiovascular: tachycardic, regular, no murmur Respiratory: Mild tachypnea, no retractions, speaks full sentences and comfortably Abdomen/GI: soft, mild rigth sided abd tenderness, no rebound MS/ Extremity: Pulses equal, no cyanosis. Neurovascular intact. Full, normal range of motion. Equal circumference. Neuro: Awake and alert, GCS 15, oriented to person, place, thinks it is 1981. Cranial nerves II-XII grossly intact. Motor strength 5/5 in all extremities. Sensory grossly intact. Vital Signs: 15:05 BP 107 / 85; Pulse 140; Resp 30; Temp 98.0; Pulse Ox 92% on R/A; Pain 0/10; lk1 15:15 BP 92 / 79; Pulse 146; Resp 32; Temp 98.1; Pulse Ox 98% on R/A; Pain 0/10; lk1 15:30 BP 87 / 58; Pulse 156; Resp 30; Pulse Ox 97% on R/A; lk1 16:00 BP 88 / 73; Pulse 161; Resp 30; Pulse Ox 99% on R/A; lk1 16:30 BP 120 / 82; Pulse 143; Resp 18; Pulse Ox 100% on R/A; lk1 17:00 BP 114 / 89; Pulse 139; Resp 17; Pulse Ox 98% on R/A; lk1 18:00 BP 100 / 67; Pulse 112; Resp 22; Pulse Ox 98% on R/A; Pain 0/10; lk1 18:30 BP 106 / 66; Pulse 116; Resp 22; Pulse Ox 98% on R/A; Pain 0/10; lk1 19:00 BP 100 / 64; Pulse 111; Resp 16; Pulse Ox 100% on R/A; Pain 0/10; lk1 19:33 Weight 98.88 kg (R); Height 5 ft. 11 in. (180.34 cm) (R); lk1 20:00 BP 108 / 64; Pulse 111; Resp 18; Pulse Ox 98% on R/A; lk1 19:33 Body Mass Index 30.40 (98.88 kg, 180.34 cm) lk1 MDM: 15:22 Patient medically screened. rn 18:19 Differential Diagnosis: electrolyte abnormality, hypoglycemia, sepsis, UTI, volume rn depletion. Data reviewed: vital signs, nurses notes, lab test result(s), EKG, radiologic studies, and as a result, I will admit patient. Counseling: I had a detailed discussion with the patient and/or guardian regarding: the historical points, exam findings, and any diagnostic results supporting the discharge/admit diagnosis, lab results, radiology results, the need for further work-up and treatment in the hospital. Response to treatment: the patient's symptoms have markedly improved after treatment, and as a result, I will admit patient. Admission orders: after a detailed discussion of the patient's condition and case, the admit orders are written by me. ED course: Pt mental status improved, BP improved, HR decreasing, will obs overnight for volume depletion, admitted to Dr. Parker. . 05/30 15:29 Order name: Urine Culture rn 05/30 15:29 Order name: Urine Microscopic Only rn 05/30 15:29 Order name: Basic Metabolic Panel; Complete Time: 17:15 05/30 15:29 Order name: Blood Culture Adult (2) rn 05/30 15:29 Order name: BNP; Complete Time: 17:15 05/30 15:29 Order name: CBC with Diff rn 05/30 15:29 Order name: CPK; Complete Time: 17:15 05/30 15:29 Order name: Lactate; Complete Time: 17:15 05/30 15:29 Order name: LFT's; Complete Time: 17:15 rn 05/30 15:29 Order name: Lipase; Complete Time: 17:15 rn 05/30 15:29 Order name: Procalcitonin; Complete Time: 17:15 05/30 15:29 Order name: Protime (+inr); Complete Time: 17:15 05/30 15:29 Order name: Ptt, Activated; Complete Time: 17:15 05/30 15:29 Order name: Troponin (emerg Dept Use Only); Complete Time: 17:15 05/30 15:29 Order name: Chest Single View XRAY; Complete Time: 17:56 rn 05/30 15:29 Order name: Cardiac monitoring; Complete Time: 17:48 rn 05/30 15:29 Order name: EKG - Nurse/Tech; Complete Time: 17:48 rn 05/30 15:29 Order name: IV Saline Lock - Large Bore; Complete Time: 16:21 rn 05/30 15:29 Order name: Labs collected and sent; Complete Time: 17:48 rn 05/30 15:29 Order name: O2 Per Protocol; Complete Time: 17:48 rn 05/30 15:29 Order name: O2 Sat Monitoring; Complete Time: 17:48 rn 05/30 15:30 Order name: Urine Culture EDMI 05/30 16:46 Order name: Manual Differential EDMI 05/30 17:53 Order name: Urine Dipstick--Ancillary (enter results); Complete Time: 19:01 bd 05/30 20:22 Order name: Lactate Sepsis 2 HR Follow-up [facility] 05/30 15:29 Order name: Urine Dipstick-Ancillary (obtain specimen); Complete Time: 17:48 rn Administered Medications: 16:20 Drug: NS 0.9% 1000 ml Route: IV; Rate: 1000 ml; Site: right antecubital; la1 17:15 Follow up: Response: No adverse reaction; IV Status: Completed infusion lk1 17:18 Drug: NS 0.9% 500 ml Route: IV; Rate: bolus; Site: right antecubital; lk1 17:45 Follow up: Response: No adverse reaction; IV Status: Completed infusion lk1 17:30 Drug: Potassium Chloride 10 mEq Route: IV; Rate: 1 calculated rate; Site: right lk1 antecubital; 18:30 Follow up: Response: No adverse reaction; IV Status: Completed infusion lk1 17:50 Drug: NS 0.9% 500 ml Route: IV; Rate: bolus; Site: right antecubital; lk1 18:20 Follow up: Response: No adverse reaction; IV Status: Completed infusion lk1 Disposition: 05/30/17 18:23 Hospitalization ordered by Rubia Parker for Observation. Preliminary diagnosis are Altered mental status, unspecified, Dehydration, Volume depletion. - Bed requested for Telemetry/MedSurg (observation). - Status is Observation. lk1 - Condition is Stable. - Problem is new. - Symptoms have improved. UTI on Admission? No Signatures: Dispatcher [employer] EDLeidy Sanchez, RN Garret Freeman MD MD rn Attema, Lee, RN RN la1 Kluge, Leah, RN RN lk1 Corrections: (The following items were deleted from the chart) 20:13 15:29 Priti allen1
--- NOTE | 2017-05-30 18:24 | ER ---
Nurse's Notes [facility] Name: Robert Natarajan Age: 66 yrs Sex: Male : 1950 Arrival Date: 05/30/2017 Time: 15:22 Bed 27 Private MD: Diagnosis: Altered mental status, unspecified;Dehydration;Volume depletion Presentation: 05/30 15:23 Presenting complaint: states: "He was normal at 0830 and took a nap. He woke up at lk1 1400 and asked for help to the restroom. He started calling for two dogs of ours that are and is just not acting like himself. I have had a lot of trouble getting him to eat for the last two weeks because he has colon cancer.". Transition of care: patient was not received from another setting of care. Onset of symptoms was May 30, 2017 at 14:00. Care prior to arrival: None. 15:23 Method Of Arrival: EMS: [facility] lk1 15:23 Acuity: AFUA 2 lk1 Triage Assessment: 15:28 General: Appears in no apparent distress. ill, Behavior is calm, cooperative, lk1 appropriate for age. Pain: Denies pain. EENT: No signs and/or symptoms were reported regarding the EENT system. Neuro: Level of Consciousness is awake, alert, obeys commands, Oriented to person, place, time, situation, Moves all extremities. Speech is normal, Facial symmetry appears normal, Pupils are PERRLA, Patient answers questions appropriately and knows the events prior to arrival to the ED. . Cardiovascular: Capillary refill is > 3 seconds in bilateral fingers. Cardiovascular: Heart tones S1 S2 present Rhythm is sinus tachycardia. Respiratory: Airway is patent Respiratory effort is even, unlabored, Respiratory pattern is symmetrical, tachypnea. GI: Abdomen is round non-distended, Bowel sounds present X 4 quads. Derm: Skin is pale, Skin temperature is cool. Historical: - Allergies: 15:27 LANOLIN; lk1 - PMHx: 15:27 colon cancer; Hypertension; lk1 - PSHx: 15:27 left shoulder sx.; left arm hardware; Tonsillectomy; lk1 - Immunization history:: Adult Immunizations up to date. - Social history:: Smoking status: Patient/guardian denies using tobacco. - Family history:: not pertinent. - Hospitalizations: : No recent hospitalization is reported. Screenin:34 Abuse screen: Denies threats or abuse. Denies injuries from another. Nutritional lk1 screening: No deficits noted. Tuberculosis screening: No symptoms or risk factors identified. Fall Risk Total Harrington Fall Scale indicates High Risk Score (45 or more points). Fall prevention measures have been instituted. Side Rails Up X 2 Placed Close to Nursing Station Frequent Obs/Assessments Occuring Family Present and informed to notify staff if the need to leave the bedside As available patient and family educated on Fall Prevention Program and Strategies. Assessment: 16:02 Reassessment: Antwan RN at bedside for ultrasound guided IV attempt now. lk1 17:15 Reassessment: Patient and/or family updated on plan of care and expected duration. Pain lk1 level reassessed. Patient is alert, oriented x 3, equal unlabored respirations, skin warm/dry/pink. Patient states feeling better. Patient states symptoms have improved. Cardiovascular: Capillary refill is > 3 seconds Patient's skin is warm and dry. Patient is no longer cool and pale. Color has improved.. Respiratory: Airway is patent Respiratory effort is even, unlabored, Respiratory pattern is regular, symmetrical. 20:00 Reassessment: Patient and/or family updated on plan of care and expected duration. Pain lk1 level reassessed. Patient is alert, oriented x 3, equal unlabored respirations, skin warm/dry/pink. Patient states feeling better. Patient states symptoms have improved. Critical care time stopped, patient has stabilized. Vital Signs: 15:05 BP 107 / 85; Pulse 140; Resp 30; Temp 98.0; Pulse Ox 92% on R/A; Pain 0/10; lk1 15:15 BP 92 / 79; Pulse 146; Resp 32; Temp 98.1; Pulse Ox 98% on R/A; Pain 0/10; lk1 15:30 BP 87 / 58; Pulse 156; Resp 30; Pulse Ox 97% on R/A; lk1 16:00 BP 88 / 73; Pulse 161; Resp 30; Pulse Ox 99% on R/A; lk1 16:30 BP 120 / 82; Pulse 143; Resp 18; Pulse Ox 100% on R/A; lk1 17:00 BP 114 / 89; Pulse 139; Resp 17; Pulse Ox 98% on R/A; lk1 18:00 BP 100 / 67; Pulse 112; Resp 22; Pulse Ox 98% on R/A; Pain 0/10; lk1 18:30 BP 106 / 66; Pulse 116; Resp 22; Pulse Ox 98% on R/A; Pain 0/10; lk1 19:00 BP 100 / 64; Pulse 111; Resp 16; Pulse Ox 100% on R/A; Pain 0/10; lk1 19:33 Weight 98.88 kg (R); Height 5 ft. 11 in. (180.34 cm) (R); lk1 20:00 BP 108 / 64; Pulse 111; Resp 18; Pulse Ox 98% on R/A; lk1 19:33 Body Mass Index 30.40 (98.88 kg, 180.34 cm) lk1 ED Course: 15:22 Patient arrived in ED. lk1 15:22 Garret Bergman MD is Attending Physician. rn 15:26 Triage completed. lk1 15:32 Arm band placed on right wrist. lk1 16:01 Missed attempt(s): 20 gauge in right antecubital area. lk1 16:02 Missed attempt(s): 20 gauge in left antecubital area. lk1 16:02 Missed attempt(s): 22 gauge in right wrist. lk1 16:18 Accessed peripheral vein via ultrasound, utilizing dynamic ultrasound technique using la1 18G Sureflo IV catheter per hospital protocol. Clean \\T\\ dry. 16:22 X-ray completed. Portable x-ray completed in exam room. Patient tolerated procedure kp1 well. 16:26 Chest Single View XRAY In Process Unspecified. EDMS 17:21 Joanna Hua, ELIDA is Primary Nurse. lk1 17:46 Urine collected: clean catch specimen, clear, tea colored. 3 18:21 Garret Bergman MD is Hospitalizing Provider. rn 18:22 Rubia Parker MD is Hospitalizing Provider. rn 19:34 Patient has correct armband on for positive identification. Placed in gown. Bed in low lk1 position. Call light in reach. Adult w/ patient. 19:56 Repeat lab(s) drawn. by nd, sent to lab. dh3 20:19 No provider procedures requiring assistance completed. Patient admitted, IV remains in lk1 place. No redness/swelling at site. Administered Medications: 16:20 Drug: NS 0.9% 1000 ml Route: IV; Rate: 1000 ml; Site: right antecubital; la1 17:15 Follow up: Response: No adverse reaction; IV Status: Completed infusion lk1 17:18 Drug: NS 0.9% 500 ml Route: IV; Rate: bolus; Site: right antecubital; lk1 17:45 Follow up: Response: No adverse reaction; IV Status: Completed infusion lk1 17:30 Drug: Potassium Chloride 10 mEq Route: IV; Rate: 1 calculated rate; Site: right lk1 antecubital; 18:30 Follow up: Response: No adverse reaction; IV Status: Completed infusion lk1 17:50 Drug: NS 0.9% 500 ml Route: IV; Rate: bolus; Site: right antecubital; lk1 18:20 Follow up: Response: No adverse reaction; IV Status: Completed infusion lk1 Outcome: 18:23 Decision to Hospitalize by Provider. rn 20:18 Admitted to Med/surg accompanied by tech, family with patient, via wheelchair, room [facility] 423, with chart, Report called to Fiona 20:18 Condition: good 20:18 Discharge instructions given to patient, family, Instructed on the need for admit, Demonstrated understanding of instructions. 20:23 Patient left the ED. lk1 Signatures: Dispatcher [employer] EDMS Garret Bergman MD MD rn Attema, Lee, RN RN la1 Joanna Hua RN RN lk1 Regina Jean-Baptiste kp1 Yahaira Dc 3 Corrections: (The following items were deleted from the chart) 20:20 15:30 Potassium Chloride 10 mEq IV at 1 calculated rate in right antecubital [place] [id number]
[2017-05-30 18:43] LABS: Urine Blood TRACE (NEG); Urine Glucose TRACE (NEG); Urine Protein 2+ (NEG)
[2017-05-30] MEDS ORDERED: ACETAMINOPHEN 500 MG TAB PO PRN (18:55)
[2017-05-30] MEDS ORDERED: ONDANSETRON 4 MG/2 ML VIAL IV PRN (18:55)
[2017-05-30 19:07] LABS: Urine Bacteria <20 /HPF (NONE SEEN); Urine RBC <5 /HPF (NONE SEEN)
[2017-05-30 19:08] LABS: Urine Culture Reflex Order NOT NEEDED; Urine Mucus 2+ /HPF (NONE SEEN); Urine White Blood Cell Casts 0-5 /LPF (NONE SEEN)
--- NOTE | 2017-05-30 20:02 | P.HP ---
Certification for Inpatient Patient admitted to: Observation With expected LOS: <2 Midnights Practitioner: I am a practitioner with admitting privileges, knowledge of patient current condition, hospital course, and medical plan of care. Services: Services provided to patient in accordance with Admission requirements found in Title 42 Section 412.3 of the Code of Federal Regulations Patient History Date of Service: 05/30/17 Reason for admission: acute encephalopathy History of Present Illness: Mr Natarajan is a 66 years old male with history of HTN, who was diagnosed with colon cancer on February of this year, currently on chemotherapy, last round about 2 weeks ago. He was doing ok until 2 weeks ago when he started to decreased his oral intake. He states that the food taste funny and he does not wants to eat. He was not drinking enough fluids either. This morning he was lethargic, and confused. No history of fever or chills, no nausea or vomiting, no diarrhea. He also denied SOB or cough. Lab work was significantly abnormal including hyponatremia, hypokalemia, elevated lactate, with normal procalcitonin. He was afebrile, but BP on the lower side and tachycardic. Allergies lanolin Allergy (Unverified 03/05/17 09:50) Unknown - Past Medical/Surgical History -: colon cancer -: HTN -: left shoulder -: left arm hardware -: Tonsillectomy - Family History Family History: Reviewed- Non-Contributory - Social History Smoking Status: Former smoker Alcohol use: No CD- Drugs: No Place of Residence: Home Review of Systems 10-point ROS is otherwise unremarkable Physical Examination - Physical Exam General: Alert, In no apparent distress HEENT: Atraumatic, PERRLA, Mucous membr. moist/pink, EOMI, Sclerae nonicteric Neck: Supple, 2+ carotid pulse no bruit, No LAD, Without JVD or thyroid abnormality Respiratory: Normal air movement, Expiratory wheezes Cardiovascular: Regular rate/rhythm, Normal S1 S2 Gastrointestinal: Normal bowel sounds, No tenderness Musculoskeletal: No tenderness Integumentary: No rashes Neurological: Normal speech, Normal strength at 5/5 x4 extr, Normal tone, Normal affect Lymphatics: No axilla or inguinal lymphadenopathy - Studies Laboratory Data (last 24 hrs) 05/30/17 16:13: PT 17.3 H, INR 1.46, APTT 29.9 05/30/17 16:13: WBC 2.5 L, Hgb 14.3, Hct 45.4, Plt Count 701 H 05/30/17 16:13: B-Natriuretic Peptide 144 H 05/30/17 15:29: Sodium 129 L, Potassium 3.3 L, BUN 11, Creatinine 0.72, Glucose 138 H, Total Bilirubin 1.1, AST 27, ALT 13, Alkaline Phosphatase 244 H, Lipase < 10 L Assessment and Plan - Problems (Diagnosis) (1) Acute encephalopathy Current Visit: Yes Status: Acute (2) Hyponatremia Current Visit: Yes Status: Acute (3) Hypokalemia Current Visit: Yes Status: Acute (4) Dehydration Current Visit: Yes Status: Acute (5) Colon cancer Current Visit: Yes Status: Acute Qualifiers: Colon location: unspecified part of colon Qualified Code(s): C18.9 - Malignant neoplasm of colon, unspecified - Plan Mr natarajan will be admitted due to acute encephalopathy and electrolyte disturbance, in context of volume depletion. No obvious signs of infection. Will continue with IV normal saline, replace electrolyte as needed by protocol. His vital signs are improving after volume resuscitation. - Advance Directives Does patient have a Living Will: No Does patient have a Durable POA for Healthcare: No - Code Status/Comfort Care Code Status Assessed: Yes Code Status: Full Code
[2017-05-30 20:10] LABS: Platelet Estimate INCR; Platelets, Giant PRESENT
[2017-05-30 20:11] LABS: Anisocytosis 2+; Blood Morphology Comment NOTED (NOT SEEN)
[2017-05-30] MEDS: NA CHLORIDE 0.9% 1,000 ML IV SCH (20:44)
[2017-05-30] MEDS: VENLAFAXINE HCL XR 37.5MG CAP PO SCH (23:18)
[2017-05-31] MEDS: NA CHLORIDE 0.9% 1,000 ML IV SCH ×2 (05:00→08:05)
[2017-05-31 05:04] LABS: Absolute Lymphocytes (CBC) 0.9 K/uL (0.7-4.9); Absolute Monocytes 2.1 K/uL (0.1-1.3); Absolute Neutrophil 1.3 K/uL (1.8-8.0); Basophils % 0.4 % (0-1.3); Hematocrit 38.1 % (39.6-49.0); Lymphocytes % 21.7 % (15.3-44.8); MCH 27.3 pg (27.0-35.0); MCV 86.6 fL (80-100); MPV 7.9 fL (7.6-11.3); Monocytes % 48.4 % (3.3-12.3)
[2017-05-31 06:50] LABS: ALT/SGPT 9 IU/L (10-60); AST/SGOT 15 IU/L (10-42); Albumin 2.1 g/dL (3.2-5.5); Alkaline Phosphatase 155 IU/L (42-121); BUN Blood Urea Nitrogen 13 mg/dL (6-20); Bicarbonate 27 mEq/L (21-31); Bilirubin Total 0.6 mg/dL (0.3-1.2); Glomerular Filtration Rate > 90 mL/min (=/>90); Glucose Level 141 mg/dL (65-120); Magnesium 1.5 mg/dL (1.8-2.5); Potassium 3.8 mEq/L (3.6-5.0); Protein, Total 5.9 g/dL (6.0-8.3); Sodium Level 131 mEq/L (135-145)
[2017-05-31] MEDS ORDERED: Magnesium Sulfate 2gm IVPB 2 G/50 ML BAG IV ONE (08:00)
[2017-05-31] MEDS ORDERED: POTASSIUM 25 MEQ EFFERV TAB PO ONE (08:00)
[2017-05-31] MEDS: MORPHINE 15 MG IR TAB PO SCH ×2 (08:31→20:28)
[2017-05-31] MEDS: DOCUSATE NA/SENNA CONC 1 TAB PO SCH ×2 (08:32→20:29)
[2017-05-31] MEDS ORDERED: ENOXAPARIN 40 MG/0.4 ML SQ SCH (09:00)
--- NOTE | 2017-05-31 10:23 | EKG ---
Test Date: 2017-05-30 Test Time: 15:21:21 Facility Maintenance Supervisor: CARLY MEASUREMENT RESULTS: Intervals: Rate: 165 SC: 122 QRSD: 72 QT: 248 QTc: 410 [place]: P: 11 SC: 122 QRS: -55 T: 76 INTERPRETIVE STATEMENTS: Sinus tachycardia Left axis deviation Possible Lateral infarct, age undetermined Inferior infarct, age undetermined ST abnormality, possible subendocardial injury Abnormal ECG Compared to ECG 03/20/2017 11:18:34 Ventricular premature complex(es) no longer present Myocardial infarct finding still present Electronically Signed On 05-31-17 10:23:19 CDT by Alan Durán
--- NOTE | 2017-05-31 15:03 | PN ---
Date of Progress Note: 05/31/2017 Subjective: The patient is seen and examined. Chart reviewed and case discussed with RN. The patie nt states he feels significantly better, but still feeling very weak, unable to tell me whether he schreiber d a breakfast yet. Pain has improved, currently at baseline. Review of Systems: Negative except as above. Medications: Reviewed. Physical Examination: Vital Signs: Temperature 99.1, heart rate 91, blood pressure 120/72, respirations 18, O2 98% on 2 li ters via nasal cannula. General: Awake, alert, oriented x3, in some mild distress. Elderly male, so mewhat ill-appearing, obese, BMI 31.4. CV: S1, S2. No murmurs. Regular rate and rhythm. Peripheral pulses present. Respiratory: Moving air well bilaterally. No wheezing. Abdomen: Abdomen is soft, nondistended, nontender. Positive bowel sounds. Extremities: No clubbing, cyanosis, or edema. Neurologic: Nonfocal. Laboratory Data: Sodium 131, potassium 3.8, chloride 95, CO2 27, BUN 13, creatinine 0.46, glucose 12 1, lactate 115.2, calcium 8, magnesium 1.5, AST 15, ALT 9, and alkaline phosphatase 155, albumin 2.1. WBC 4.4, H and H 12 and 38.1, platelets 427, neutrophils 29%. Assessment And Plan: A 66-year-old male with. 1.Acute metabolic encephalopathy, resolved. 2.Hyponatremia, improving. Continue IV fluids. 3.Hypokalemia, replace and monitor. 4.Hypomagnesemia. We will place in monitor. 5.Acute dehydration. Continue IV fluids and encourage p.o. intake. 6.Recently diagnosed stage IV colon cancer. [facility]. 7.Chemotherapy is scheduled for Thursday. 8.Severe protein-calorie malnutrition. Albumin is 2.1. 9.Obesity, BMI 31.1. 10.Essential hypertension stable. Resume home medications as appropriate. Plan: Continue IV hydration, PT evaluation. The patient is very weak. Resume home dose of morphine . Likely discharge in 24 hours if he continues to improve. /REGINO Voice ID: [id number] Report ID: [id number]
[2017-05-31] MEDS: VENLAFAXINE HCL XR 37.5MG CAP PO SCH (20:29)
[2017-06-01] MEDS: OXYCODONE HCL 5 MG TAB PO PRN ×2 (00:41→06:15)
[2017-06-01] MEDS: Oxycodone HCl/Acetaminophen 1 TAB TAB PO PRN ×2 (00:41→06:15)
[2017-06-01] MEDS: NA CHLORIDE 0.9% 1,000 ML IV SCH ×2 (01:00→06:41)
[2017-06-01 05:18] LABS: Absolute Lymphocytes (CBC) 0.4 K/uL (0.7-4.9); Absolute Monocytes 0.4 K/uL (0.1-1.3); Absolute Neutrophil 1.2 K/uL (1.8-8.0); Basophils % 0.3 % (0-1.3); Eosinophils % 0.4 % (0-4.4); Hematocrit 40.9 % (39.6-49.0); MCH 27.3 pg (27.0-35.0); MPV 8.4 fL (7.6-11.3); Monocytes % 18.8 % (3.3-12.3); RBC Red Blood Cell Count 4.76 M/uL (4.33-5.43)
[2017-06-01 05:27] LABS: ALT/SGPT 10 IU/L (10-60); AST/SGOT 29 IU/L (10-42); Alkaline Phosphatase 124 IU/L (42-121); BUN Blood Urea Nitrogen 17 mg/dL (6-20); Bicarbonate 19 mEq/L (21-31); Bilirubin Total 0.8 mg/dL (0.3-1.2); Glomerular Filtration Rate > 90 mL/min (=/>90); Glucose Level 109 mg/dL (65-120); Potassium 3.8 mEq/L (3.6-5.0); Protein, Total 5.8 g/dL (6.0-8.3); Sodium Level 132 mEq/L (135-145)
[2017-06-01 06:41] LABS: Anisocytosis 2+; Blood Morphology Comment NOTED (NOT SEEN); Platelet Estimate INCR; Poikilocytosis 1+
[2017-06-01] MEDS ORDERED: POTASSIUM CL SA 10 MEQ TAB PO ONE (09:00)
[2017-06-01] MEDS: DOCUSATE NA/SENNA CONC 1 TAB PO SCH (09:00)
[2017-06-01] MEDS: MORPHINE 15 MG IR TAB PO SCH (09:28)
--- NOTE | 2017-06-01 11:51 | RAD REPORT ---
EXAM DESCRIPTION: RAD - Chest Single View - 06/01/2017 11:34 am CLINICAL HISTORY: Shortness of breath, history of malignancy of the colon with carcinomatosis COMPARISON: May 30 TECHNIQUE: AP portable chest image was obtained 1123 hours . FINDINGS: Lung volumes are low. No failure or volume overload. Infiltrate and/ or atelectasis in the posterior gutter on the right cannot be excluded. Left base is clear. Mid and upper lung [place] r of any significant process. Trachea is midline. Right jugular Port-A-Cath is in place. Mediastinum is distorted by rotation. Medi astinal adenopathy assessment is limited. Heart size is normal. No pneumothorax. No large pleural eff usions seen. No gross bony abnormality seen. No acute aortic finding suspected. Upper abdomen assessment is limited. There is evidence for free air. Patient may have had a recent chun rgical procedure. Patient has a CT is pending of the abdomen. This would further assess the limited u pper abdomen assessment of the chest film. IMPRESSION: Shallow inspiration chest film showing no pulmonary edema, failure or volume overload. No infiltrate is seen though right posterior gutter assessment is limited. Questionable free air of the upper abdomen. Any recent surgical history is not known. Patient has a p ending CT study which will evaluate any free air.
[2017-06-01 12:27] LABS: Blood O2 Saturation 91.6 % (92-98.5)
--- NOTE | 2017-06-01 12:43 | CON ---
History Of Present Illness: Mr. Natarajan has several days when he was eating and drinking almost nothing . He was in the bathroom. He appeared to be disoriented to his , she was with him. There was n o loss of consciousness. He was hurting virtually and literally everywhere in his body. When he cam e to the hospital, he was given hydration. He was initially hypotensive, but appears to be better no w. Mr. Natarajan has no history of heart disease. He has a history of colon cancer with peritoneal carci nomatosis. He has basically failure to thrive, very low white blood cell count, nausea, anorexia, hy potension, and carcinomatosis. One of the laboratory tests that was done was a troponin level, it wa s 0.04, others are pending. Physical Examination: Vital Signs: 5 feet 11 inches, 225 pounds. General: Appears to be ill, older than his stated age. Lungs: Clear. Heart: Regular rate and rhythm. No significant murmur or gallop. Abdomen: Seems to be ascites. Mild tenderness, diffuse. Laboratory Data: Chest x-ray reveals elevated right hemidiaphragm, right base subsegmental atelectas is. He has a chemotherapy catheter in the right subclavian and superior vena cava appropriately posi tioned. An EKG reveals sinus tachycardia. There is ST abnormality, possible subendocardial injury, lateral inferior infarcts. I believe Mr. Natarajan probably has some amount of CAD. His peritoneal carci nomatosis precludes as even thinking about doing a heart cath and stents. We can treat him medically . I suspect he does not have a very unstable heart. We will get an echocardiogram. I think if he s tays well hydrated, his heart will do fine. There is really a very poor prognosis with colon cancer adenocarcinoma and peritoneal adenoma carcinomatosis and doing any coronary interventions would not improve his prognosi s at all. ELIZ/REGINO Voice ID: [id number] Report ID: [id number]
--- NOTE | 2017-06-01 12:56 | EKG ---
Test Date: 2017-05-31 Test Time: 23:02:40 Insurance Consultant: RT MEASUREMENT RESULTS: Intervals: Rate: 130 MS: 112 QRSD: 78 QT: 274 QTc: 403 [place]: P: 23 MS: 112 QRS: -59 T: 55 INTERPRETIVE STATEMENTS: Sinus tachycardia Left axis deviation Low voltage QRS Inferior infarct, age undetermined Possible Anterolateral infarct, age undetermined Abnormal ECG Compared to ECG 05/30/2017 15:21:21 no significant change from previous ECG Electronically Signed On 06-01-17 12:56:14 CDT by Alan Durán
--- NOTE | 2017-06-01 12:56 | EKG ---
Test Date: 2017-06-01 Test Time: 05:02:23 Import/Export Freight Forwarder: RT MEASUREMENT RESULTS: Intervals: Rate: 142 [place]: 118 QRSD: 80 QT: 276 QTc: 424 [place]: P: 27 [place]: 118 QRS: -58 T: 43 INTERPRETIVE STATEMENTS: Sinus tachycardia with PVC s Left axis deviation Low voltage QRS Anterolateral infarct, age undetermined Abnormal ECG Compared to ECG 05/31/2017 23:02:40 Myocardial infarct finding still present Electronically Signed On 06-01-17 12:55:23 CDT by Alan Durán
[2017-06-01] MEDS ORDERED: D50W 25 GM/50 ML SYRINGE IV ONE (12:58)
--- NOTE | 2017-06-01 13:04 | ECHO ---
HEIGHT: 5 ft 11 in WEIGHT: 225 lb 0 oz DATE OF STUDY: 06/01/[address]: Alan Durán MD 2-DIMENSIONAL: YES M.MODE: YES DOPPLER: YES COLOR FLOW: YES TDS: YES PORTABLE: NO DEFINITY: NO BUBBLE STUDY: NO DIAGNOSIS: ABNORMAL TROPONIN CARDIAC HISTORY: CATHERIZATION: NO SURGERY: NO PROSTHETIC VALVE: NO PACEMAKER: NO MEASUREMENTS (cm) DIASTOLIC (NORMALS) SYSTOLIC (NORMALS) IVSd 1.3 (0.6-1.2) LA Diam (1.9-4.0) LVEF 86% LVIDd 5.0 (3.5-5.7) LVIDs 2.2 (2.0-3.5) %FS 56% LVPWd 1.4 (0.6-1.2) Ao Diam 3.4 (2.0-3.7) 2 DIMENSIONAL ASSESSMENT: RIGHT ATRIUM: NORMAL LEFT ATRIUM: NORMAL RIGHT VENTRICLE: NORMAL LEFT VENTRICLE: NORMAL TRICUSPID VALVE: NORMAL MITRAL VALVE: NORMAL PULMONIC VALVE: NORMAL AORTIC VALVE: NORMAL PERICARDIAL EFFUSION: NONE AORTIC ROOT: NORMAL LEFT VENTRICULAR WALL MOTION: NORMAL. DOPPLER/COLOR FLOW: NORMAL. COMMENTS: NORAML 2D ECHO. ALTHOUGH THE PATIENT WAS IN SINUS TACHYCARDIA 150 BEATS PER MINUTE. TECHNOLOGIST: YAZMIN ARGUETA
[2017-06-01] MEDS ORDERED: PIPER/TAZO/NS 3.375gm 3.375 GM/100 ML BAG IVPB SCH ×2 (13:15→15:15)
--- NOTE | 2017-06-01 14:05 | RAD REPORT ---
EXAM DESCRIPTION: CT - Abdomen Pelvis Wo Contrast - 06/01/2017 1:25 pm CLINICAL HISTORY: Abdominal pain, declining state with transferred ICU, abnormal chest film, history of colon cancer treated with chemotherapy, ascites Technologist provided history of paracentesis performed at outside facility, history of recent large volume urinary bladder decompression COMPARISON: CT imaging March 2017 TECHNIQUE: Axial [address] imaging of the abdomen and pelvis was performed without IV contrast. No IV contrast was given because of allergy, abnormal renal function, patient refusal or physician re quest. No oral contrast was given. All CT scans are performed using dose optimization technique as appropriate and may include automated exposure control or mA/KV adjustment according to patient size. FINDINGS: Minimal fluid and atelectasis in the right lung base. Left lung base is clear. No pericard ial effusion. Liver has a nodular contour but a normal size and no focal lesion on a noncontrast study. No splenic abnormality identified. No primary pancreatic process suspected. No biliary tree dilatation. Gallblad yoko appears prominent. Hyperdensity may be vicarious excretion of contrast from prior imaging. Layeri ng of sludge and debris within the gallbladder lumen is evident. No biliary tree dilatation. No hydronephrosis or suspicious renal mass. No significant adrenal finding. Isodense renal masses an d pyelonephritis cannot be excluded in the absence of IV contrast. Urinary bladder is fully contracte d. Prostate gland and seminal vesicles show no suspicious findings. Irregular circumferential wall thickening of the sigmoid colon is present. This matches the March examination. In the adjacent fatty tissue there is extraluminal free air. Moderate amount of intraper itoneal free air is present. There is history of a paracentesis procedure performed recently. However , this quantity of free air is not associated with typical paracentesis procedure. Perforation of the sigmoid colon malignancy is most likely. Patient has a large volume of ascites. There is an extensive carcinomatosis pattern with omental caki ng. Numerous areas of nodularity are present along the peritoneal min. Intraperitoneal hemorrhage is certainly possible as well. Active extravasation cannot be assessed in the absence of IV contrast adm inistration. No bowel wall pneumatosis. No other acute bowel findings. No suspicious bony findings. Findings discussed with the referring physician 1:50 p.m. IMPRESSION: Moderately large volume of free intraperitoneal air believed to be secondary to perforat ion of the patient's known sigmoid carcinoma. Large volume of ascites. This could represent a combination of progressive ascites and hemorrhage. Extensive carcinomatosis pattern is again noted. There is extensive omental caking and numerous areas of nodularity along the peritoneal min. Suspected cirrhosis of the liver without a focal lesion identifiable on noncontrast imaging. Provided history indicates a recent paracentesis procedure. Although a minimal amount of air could po ssibly have been introduced during the paracentesis, this quantity of free air is not believed to be related to that procedure. Full assessment is limited is the absence of IV contrast.
[2017-06-01] MEDS ORDERED: RSI MEDICATION KIT IV ONE (14:42)
[2017-06-01] MEDS ORDERED: HALOPERIDOL LACT 5 MG/ML INJ IV PRN (14:51)
[2017-06-01] MEDS ORDERED: NA CHLORIDE 0.9% 250 ML IV PRN (14:51)
[2017-06-01] MEDS ORDERED: FENTANYL CITR 100 MCG/2 ML IV PRN (14:51)
[2017-06-01] MEDS ORDERED: LORazepam 2 MG/ML VIAL IV PRN (14:51)
[2017-06-01] MEDS ORDERED: NOREPINEPHRINE 4 MG in D5W 250 ML IV PRN (14:52)
[2017-06-01] MEDS ORDERED: NA CHLORIDE 0.9% 1,000 ML IV SCH (14:54)
[2017-06-01] MEDS ORDERED: VANCOMYCIN 1.75 GM in NA CHLORIDE 0.9% 500 ML IVPB SCH (15:00)
[2017-06-01] MEDS ORDERED: VASOPRESSIN 80 UNIT in NA CHLORIDE 0.9% 250 ML IV PRN (15:12)
[2017-06-01] MEDS ORDERED: EPINEPHrine 1 MG/10 ML SYR IV ONE (15:35)
--- NOTE | 2017-06-01 16:49 | EKG ---
Test Date: 2017-06-01 Test Time: 15:01:10 Electric Wheelchair Repairer: CHELSIE MEASUREMENT RESULTS: Intervals: Rate: 109 [place]: 100 QRSD: 84 QT: 370 QTc: 498 [place]: P: 103 [place]: 100 QRS: -31 T: 125 INTERPRETIVE STATEMENTS: Sinus tachycardia with short LA with occasional premature ventricular complexes Left axis deviation Low voltage QRS Possible Lateral infarct, age undetermined Inferior infarct, age undetermined Abnormal ECG Compared to ECG 06/01/2017 14:57:23 Short LA interval now present Left-axis deviation now present Fusion complex(es) no longer present Myocardial infarct finding still present Electronically Signed On 06-01-17 16:48:28 CDT by Alan Durán
--- NOTE | 2017-06-01 16:49 | EKG ---
Test Date: 2017-06-01 Test Time: 15:10:41 Retail Mortgage Banker: CHELSIE MEASUREMENT RESULTS: Intervals: Rate: 104 [place]: 192 QRSD: 84 QT: 312 QTc: 410 [place]: P: [place]: 192 QRS: -13 T: 117 INTERPRETIVE STATEMENTS: Poor data quality, interpretation may be adversely affected Sinus tachycardia with occasional premature ventricular complexes Low voltage QRS Septal infarct, age undetermined Possible Lateral infarct, age undetermined Inferior infarct, possibly acute ST & T wave abnormality, consider anterior ischemia ACUTE [place] Consider right ventricular involvement in acute inferior infarct Abnormal ECG Compared to ECG 06/01/2017 15:04:28 Possible ischemia now present Myocardial infarct finding still present ST (T wave) deviation still present Electronically Signed On 06-01-17 16:48:23 CDT by Alan Durán
--- NOTE | 2017-06-01 16:49 | EKG ---
Test Date: 2017-06-01 Test Time: 14:57:23 Manager Social Responsibility: CHELSIE MEASUREMENT RESULTS: Intervals: Rate: 110 [place]: 132 QRSD: 78 QT: 322 QTc: 435 [place]: P: 17 [place]: 132 QRS: -15 T: 75 INTERPRETIVE STATEMENTS: Sinus tachycardia with occasional and consecutive premature ventricular complexes and fusion complexes Low voltage QRS Possible Lateral infarct, age undetermined Cannot rule out Inferior infarct, age undetermined Abnormal ECG Compared to ECG 06/01/2017 05:02:23 Fusion complex(es) now present Left-axis deviation no longer present Myocardial infarct finding still present Electronically Signed On 06-01-17 16:48:33 CDT by Alan Durán
--- NOTE | 2017-06-01 16:49 | EKG ---
Test Date: 2017-06-01 Test Time: 15:04:28 Hydrological Technical Officer: CHELSIE MEASUREMENT RESULTS: Intervals: Rate: 115 [place]: 124 QRSD: 88 QT: 306 QTc: 423 [place]: P: 104 [place]: 124 QRS: -19 T: 114 INTERPRETIVE STATEMENTS: Sinus tachycardia with occasional premature ventricular complexes Low voltage QRS Inferior infarct, possibly acute Possible Anterolateral infarct, age undetermined Marked ST abnormality, possible septal subendocardial injury ACUTE [place] Consider right ventricular involvement in acute inferior infarct Abnormal ECG Compared to ECG 06/01/2017 15:01:10 ST (T wave) deviation now present Short [place] interval no longer present Left-axis deviation no longer present Myocardial infarct finding still present Electronically Signed On 06-01-17 16:48:26 CDT by Alan Durán
[2017-06-01 18:12] LABS: Arterial Blood Carboxyhemoglob 0.9 % (0-1.5); Blood Gas Oxyhemoglobin 96.4 % (94-97); Blood O2 Saturation 98.7 % (92-98.5)
[2017-06-01 18:15] LABS: Arterial Blood Carboxyhemoglob 0.9 % (0-1.5); Blood Gas Oxyhemoglobin 96.8 % (94-97); Blood O2 Saturation 99.3 % (92-98.5)
[2017-06-01] MEDS ORDERED: ETOMIDATE 20 MG/10 ML VIAL IV ONE (18:47)
--- NOTE | 2017-06-01 19:24 | P.DS ---
Admission Date: 06/01/17 Discharge Date: 06/01/17 Disposition: Reason for Admission: acute encephalopathy Consultations: Cardiology Gen Surgery Procedures: None - Problems (1) Bowel perforation Status: Acute (2) Colon cancer Status: Chronic Qualifiers: Colon location: sigmoid Qualified Code(s): C18.7 - Malignant neoplasm of sigmoid colon (3) Dehydration Status: Chronic Brief History of Present Illness: Mr Natarajan is a 66 years old male with history of HTN, who was diagnosed with colon cancer on February of this year, currently on chemotherapy, last round about 2 weeks ago. He was doing ok until 2 weeks ago when he started to decreased his oral intake. He states that the food taste funny and he does not wants to eat. He was not drinking enough fluids either. This morning he was lethargic, and confused. No history of fever or chills, no nausea or vomiting, no diarrhea. He also denied SOB or cough. Lab work was significantly abnormal including hyponatremia, hypokalemia, elevated lactate, with normal procalcitonin. He was afebrile, but BP on the lower side and tachycardic. Hospital Course: 66-year-old male with history of colon cancer who was initially admitted to the hospital for dehydration and volume depletion. Today during rounds patient appeared to be in respiratory distress and lethargic. Abdomen was distended. Vital signs were taken. Blood pressure was 117/82, heart rate was 148 oxygen saturation was 98% on 2 L of nasal cannula blood sugar was 92. ABGs were done which was within normal limits at that time. Chest stat chest x-ray, abdominal Ct was order. Chest x-ray was negative for any volume overload however did show some free air under the diaphragm. Abdominal CT was consistent with bowel perforation and free air in the abdominal cavity. General surgery was consulted at that time. Patient was transferred to the ICU for respiratory failure. Patient was intubated. And was put on vent protocol. Patient oncologist was consulted. Dr. herrera in and I had a conversation regarding patient's poor prognosis given his colon cancer with stage IV metastasis. Patient had 3 rounds of chemo. Under which 1st round he had a chemotherapy agent which was switched over to cisplatin due to the side effects of bowel perforation. Oncologist also notified us that patient has been having some dehydration and poor appetite for past 2-3 weeks and was on fluid boluses outpatient. Patient's overall prognosis was poor given the colon cancer and stage IV metastatic metastasis. Family was made aware of the health concerns and poor prognosis. Family at that time wanted full code. While evaluating the patient at bedside patient had weak and thready pulse and eventually loss of pulse. Patient had 1 round of epi in chest compression. Patient at that time was successfully resuscitated however blood pressure was in the hypertension range. Patient was started on Levophed at that time and was maxed out on Levophed and vasopressin was added. Patient also was started on antibiotics before the transfer to the ICU for E. coli in the urine. At this time patient most likely had septic shock along with hypovolemic shock. Given the bowel perforation. Family was made aware of the changing health and rapidly declining condition. At that time made the comfort care and asked to stop any external measure and allow the patient to passed naturally. Patient was terminally extubated. Patient passed at 3:15 p.m. most likely from worsening septic shock and hypovolemic shock. Vital Signs/Physical Exam: Temp Pulse Resp BP Pulse Ox 98.4 F 54 30 H 60/47 L 91 06/01/17 08:00 06/01/17 15:27 06/01/17 15:15 06/01/17 15:27 06/01/17 14:45 General: Other () Laboratory Data at Discharge: WBC 1.9 K/uL (4.3-10.9) L* D 06/01/17 04:15 Hgb 13.0 g/dL (13.6-17.9) L 06/01/17 04:15 Hct 40.9 % (39.6-49.0) 06/01/17 04:15 Plt Count 587 K/uL (152-406) H D 06/01/17 04:15 PT 17.3 SECONDS (9.5-12.5) H 05/30/17 16:13 INR 1.46 05/30/17 16:13 APTT 29.9 SECONDS (24.3-36.9) 05/30/17 16:13 Sodium 132 mEq/L (135-145) L 06/01/17 04:15 Potassium 3.8 mEq/L (3.6-5.0) 06/01/17 04:15 BUN 17 mg/dL (6-20) 06/01/17 04:15 Creatinine 0.57 mg/dL (0.61-1.24) L 06/01/17 04:15 Glucose 109 mg/dL (65-120) 06/01/17 04:15 Magnesium 1.8 mg/dL (1.8-2.5) 05/31/17 18:13 Total Bilirubin 0.8 mg/dL (0.3-1.2) 06/01/17 04:15 AST 29 IU/L (10-42) 06/01/17 04:15 ALT 10 IU/L (10-60) 06/01/17 04:15 Alkaline Phosphatase 124 IU/L (42-121) H 06/01/17 04:15 Troponin I 0.08 ng/mL (<0.03) H 06/01/17 13:50 B-Natriuretic Peptide 144 pg/ml (<=100) H 05/30/17 16:13 Lipase < 10 U/L (22-51) L 05/30/17 15:29 Home Medications: Morphine Sulfate [Morphine Sulfate ER] 15 mg PO Q12H 05/30/17 Oxycodone HCl/Acetaminophen [Oxycodone-Acetaminophen 10-325] 1 tab PO Q4H PRN Sennosides/Docusate Sodium [Senexon-S Tablet] 1 tab PO BID 05/30/17 Venlafaxine HCl [Venlafaxine HCl ER] 37.5 mg PO BEDTIME 05/30/17
[2017-06-01] MEDS ORDERED: FAMOTIDINE 20 MG/2 ML VIAL IV SCH (21:00)
== END 2017-06-01 15:36 | disposition expired | DRG 871 ==
LOC: ER 15:08 → ERHOLD 18:28 → 4TH 19:59 → 3RD-ICU 06-01 13:30 → OBSVTOIN 06-01 14:10
PROVIDERS: ADMIT Family Medicine; ATTEND Family Medicine
PROC: 0BH17EZ Insertion of Endotracheal Airway into Trachea, Via Natural or Artificial Opening (ICD-10-PCS; principal; 2017-06-01)
PROC: 5A12012 Performance of Cardiac Output, Single, Manual (ICD-10-PCS; 2017-06-01)
DX: A41.9 Sepsis, unspecified organism (principal); G93.40 Encephalopathy, unspecified; E43 Unspecified severe protein-calorie malnutrition; K63.1 Perforation of intestine (nontraumatic); J96.00 Acute respiratory failure, unspecified whether with hypoxia or hypercapnia; R65.21 Severe sepsis with septic shock; C18.9 Malignant neoplasm of colon, unspecified; E87.1 Hypo-osmolality and hyponatremia; I10 Essential (primary) hypertension; E87.6 Hypokalemia; E86.0 Dehydration; E83.42 Hypomagnesemia; E66.9 Obesity, unspecified; Z68.31 Body mass index [BMI] 31.0-31.9, adult; Z87.891 Personal history of nicotine dependence
CPT/HCPCS: 36415; 71045; 74176; 80048; 80053; 80076; 81003; 81015; 82550; 82805; 82962; 83605; 83690; 83735; 83880; 84145; 84484; 85025; 85610; 85730; 87040; 87077; 87086; 87088; 87186; 93005; 93306; 94760; 96361; 96365; 97163; 99285; J0171; J2405; J2543; J3010; J3475; J7030; J7060